=== PATIENT | female | born 2000 | race Caucasian/White ===

== ENCOUNTER 2023-01-18 15:31 | Emergency (ER) | payer BC ==
[2023-01-18] MEDS ORDERED: Aztreonam 1 GM in Sodium Chloride 0.9% 100 ML IVPB SCH (17:00)
[2023-01-18] MEDS ORDERED: metroNIDAZOLE 500 MG/100 ML BAG ONE (17:10)
[2023-01-18] MEDS ORDERED: LevoFLOXacin 750 mg/D5W 150 ml Premix Bag ONE (17:45)
[2023-01-18 19:43] LABS: #Basophils 0.1 thou/uL (0.0-0.2); #Eosinphils 0.2 thou/uL (0.0-0.7); #Monocytes 0.5 thou/uL (0.11-0.59); #Neutrophils 3.6 thou/uL (1.40-6.50); %Basophils 0.8 % (0.0-1.0); %Eosinophils 3.8 % (0.0-10.0); %Lymphocytes 30.3 % (21.0-51.0); %Monocytes 8.3 % (0.0-10.0); %Neutrophils 56.6 % (42.0-75.0); Hematocrit 36.5 % (36.0-52.0); Hemoglobin 12.4 g/dL (12.0-18.0); Mean Corpuscular Volume 88.4 fl (78.0-98.0); Mean Platelet Volume 10.9 fL (7.4-10.4); Platelet Count 173 10x3/uL (130-400); Red Blood Cell (RBC) Count 4.13 mill/uL (4.20-6.10); White Blood Cell (WBC) Count 6.4 10x3/uL (4.8-10.8)
[2023-01-18 20:23] LABS: ALT (SGPT) 18 U/L (8-55); AST (SGOT) 17 U/L (5-34); Albumin 4.4 g/dL (3.5-5.0); Alkaline Phosphatase 46 U/L (40-110); Anion Gap 12 mmol/L (10-20); BUN (Urea Nitrogen) 12 mg/dL (7.0-20.6); Bilirubin, Total 0.5 mg/dL (0.2-1.2); Calcium 9.4 mg/dL (7.8-10.44); Carbon Dioxide 24 mmol/L (22-29); Chloride 104 mmol/L (98-107); Globulin 2.5 g/dL (2.4-3.5); Glucose 138 mg/dL (70-105); Potassium 3.8 mmol/L (3.5-5.1); Protein, Total 6.9 g/dL (6.0-8.3); Sodium 136 mmol/L (136-145)
[2023-01-18] MEDS ORDERED: Rabies Vaccine Human 2.5 UNITS VIAL ONE (21:38)
[2023-01-18] MEDS ORDERED: Rabies Immune Globulin/PF 300 UNITS/ML VIAL IM SCH (22:00)
== END 2023-01-18 22:35 | disposition home or self-care (01) ==
LOC: EDSEX → ERS 15:31
DX: S61.451A Open bite of right hand, initial encounter (principal); L03.113 Cellulitis of right upper limb; W55.01XA Bitten by cat, initial encounter
CPT/HCPCS: 90375; 90376; 90471; 90675; 96365; 96367; 96372; J0457; J1956; J3490

== ENCOUNTER → 2023-01-21 | Emergency (ER) | payer BC ==
[~2023-01-21] MED LIST: Rabies Vaccine Human 2.5 UNITS VIAL ONE
== END ==
LOC: EDSEX → ER/OP 15:32
DX: Z23 Encounter for immunization (principal)
CPT/HCPCS: 90471; 90675

== ENCOUNTER 2023-01-25 18:30 | Emergency (ER) | payer BC ==
[2023-01-25] MEDS ORDERED: Rabies Vaccine Human 2.5 UNITS VIAL ONE (20:05)
== END 2023-01-25 20:15 | disposition home or self-care (01) ==
LOC: ER/OP 18:30 → EDSEX 18:30 → ER/OP 20:15
DX: Z23 Encounter for immunization (principal)
CPT/HCPCS: 90471; 90675; 99281

== ENCOUNTER → 2023-02-01 | Day surgery (SDC) | payer BC | LOC: ER/OP 18:36 | PROVIDERS: ATTEND Specialist | DX: Z23 Encounter for immunization (principal) | CPT/HCPCS: 90471; 90675 ==